=== PATIENT | female | born 1985 | race African-American/Black ===

== ENCOUNTER 2017-10-31 09:28 | Emergency (ER) | payer BC ==
[~2017-10-31 09:28] MED LIST: CEPH-507 PO; FLUC150T PO
--- OUTSIDE RECORDS SUMMARY | 2017-10-31 09:33 | XMS REPORT | Continuity of Care Document ---
Author Author [facility] Address Unknown Phone Unavailable Allergies Active Description Code Type Severity Reaction Onset Reported/Identified Relationship to Patient Clinical Status Yes No Known Medication Allergies Drug N/A N/A Yes No Known Medication Allergies Drug N/A N/A Medications Medication Packaging Start Date Stop Date Route Dosage Sig metroNIDAZOLE 09/16/2017 09/16/2017 PO 500 mg / 1 tab metroNIDAZOLE 09/19/2017 09/20/2018 PO 500 mg / 1 tab Problems Date Dx Coded Attending Type Code Diagnosis Diagnosed By 09/16/2017 Adarsh Vines Final Z12.4 Encounter for screening for malignant neoplasm of cervix Procedures There is no data. Results Test Result Range PAP - 09/16/17 06:17 PAP Smear Billing Fee Code(s): 1: 32123 NRG CERVICAL/VAG CULT - 09/16/17 16:53 Culture NEGATIVE FOR N. GONORRHOEAE, S. AUREUS, GROUP B STREP, YEAST NRG Gram Stain MODERATE EPITHELIAL CELLS SEEN NRG Organism CXFL NRG Report Status FINAL 09/19/2017 NRG Special Requests ROUT+ NRG Specimen Description VAGINAL/ENDOCERVICAL NRG Encounters ACCT No. Visit Date/Time Discharge Status Pt. 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
[2017-10-31] MEDS ORDERED: METH4TAB PO (15:36)
== END 2017-10-31 10:14 | disposition left against medical advice (07) ==
LOC: EDUNIT# 09:28 → ER 09:30
DX: R07.9 Chest pain, unspecified (principal)

== ENCOUNTER 2017-10-31 11:38 | Emergency (ER) | payer BC ==
[~2017-10-31] VITALS: Ht 154.9 cm; Wt 70.3 kg
--- OUTSIDE RECORDS SUMMARY | 2017-10-31 11:42 | XMS REPORT | Continuity of Care Document ---
Author Author [facility] Address Unknown Phone Unavailable Allergies Active Description [...] 06:17 PAP Smear Billing Fee Code(s): 1: 40781 NRG CERVICAL/VAG CULT - 09/16/17 16:53 Culture NEGATIVE FOR N. GONORRHOEAE, S. AUREUS, GROUP B STREP, YEAST NRG Gram Stain MODERATE EPITHELIAL CELLS SEEN NRG Organism CXFL NRG Report Status FINAL 09/19/2017 NRG Special Requests ROUT+ NRG Specimen Description VAGINAL/ENDOCERVICAL NRG Encounters ACCT No. Visit Date/Time Discharge Status Pt. 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
[2017-10-31] MEDS ORDERED: ASPIRIN 81 MG CHEW (CHILDREN'S ASA) PO ONE (12:15)
--- NOTE | 2017-10-31 12:28 | Diagnostic Imaging Report ---
INDICATION: Chest pain. COMPARISON: None. FINDINGS: Upright portable view of the chest is obtained. Heart size is normal. The pulmonary vessels appear unremarkable. There is no pneumothorax, mediastinal widening or pleural fluid. Lungs are clear. IMPRESSION: Negative chest. Dictated by: Dictated on workstation # [id number]
[2017-10-31 13:44] LABS: BILIRUBIN,URINE NEGATIVE (NEGATIVE); CLARITY,URINE SLIGHTLY CLOUDY; COLOR,URINE YELLOW; GLUCOSE, URINE (UA) NEGATIVE (NEGATIVE); KETONES,URINE NEGATIVE (NEGATIVE); LEUKOCYTE ESTERASE ,URINE NEGATIVE (NEGATIVE); NITRITE,URINE NEGATIVE (NEGATIVE); PH,URINE 7 (5-9); PROTEIN,URINE NEGATIVE (NEGATIVE); UROBILINOGEN,URINE NORMAL (NORMAL)
[2017-10-31 13:55] LABS: BACTERIA,URINE NEGATIVE /HPF; WBC,URINE RARE /HPF
[2017-10-31 13:58] LABS: AMPHETAMINE SCREEN, URINE NEGATIVE (NEGATIVE); BARBITURATE SCREEN URINE NEGATIVE (NEGATIVE); BENZODIAZEPINES SCREEN URINE NEGATIVE (NEGATIVE); CANNABINOID SCREEN, URINE NEGATIVE (NEGATIVE); COCAINE SCREEN URINE NEGATIVE (NEGATIVE); METHADONE STAT NEGATIVE (NEGATIVE); METHAMPHETAMINE SCREEN URINE S NEGATIVE (NEGATIVE); OPIATE SCREEN URINE NEGATIVE (NEGATIVE); OXYCODONE STAT NEGATIVE (NEGATIVE); PROPOXYPHENE STAT NEGATIVE (NEGATIVE); TRICYCLIC ANTIDEPRESSANTS SCRE NEGATIVE (NEGATIVE)
[2017-10-31 14:09] LABS: BASOPHILS % (AUTO) 1 % (0-10); EOSINOPHILS % (AUTO) 1 % (0-10); HEMATOCRIT 34 % (35-52); HEMOGLOBIN 10.5 G/DL (11.5-16.0); LYMPHOCYTES # (AUTO) 1.8 X 10^3 (1.0-4.0); LYMPHOCYTES % (AUTO) 54 % (12-44); MEAN CORPUSCULAR HEMOGLOBIN 24 PG (25-34); MEAN CORPUSCULAR HGB CONC 31 G/DL (32-36); MEAN CORPUSCULAR VOLUME 77 FL (80-99); MEAN PLATELET VOLUME 10.3 FL (7.4-10.4); MONOCYTES # (AUTO) 0.2 X 10^3 (0.0-1.0); MONOCYTES % (AUTO) 7 % (0-12); NEUTROPHILS # (AUTO) 1.2 X 10^3 (1.8-7.8); NEUTROPHILS % (AUTO) 37 % (42-75); PLATELET COUNT 286 10^3/uL (130-400); RED BLOOD COUNT 4.34 10^6/uL (4.35-5.85); RED CELL DISTRIBUTION WIDTH 22.7 % (10.0-14.5); WHITE BLOOD COUNT 3.3 10^3/uL (4.3-11.0)
[2017-10-31 14:18] LABS: PROTHROMBIN TIME PATIENT 13.4 SEC (12.2-14.7)
[2017-10-31 14:29] LABS: ALANINE AMINOTRANSFERASE 13 U/L (0-55); ALBUMIN 4.1 GM/DL (3.2-4.5); ALKALINE PHOSPHATASE 51 U/L (40-136); AMYLASE 87 U/L (25-125); BILIRUBIN,TOTAL 0.5 MG/DL (0.1-1.0); BUN/CREATININE RATIO 6; CALCIUM 10.3 MG/DL (8.5-10.1); CARBON DIOXIDE 22 MMOL/L (21-32); CHLORIDE 106 MMOL/L (98-107); CREATINE KINASE 47 U/L (29-168); CREATININE SERUM 0.83 MG/DL (0.60-1.30); GFR ESTIMATED > 60; GLUCOSE 85 MG/DL (70-105); LIPASE 15 U/L (8-78); MAGNESIUM 1.9 MG/DL (1.8-2.4); POTASSIUM 3.9 MMOL/L (3.6-5.0); SODIUM 137 MMOL/L (135-145); TOTAL PROTEIN 7.4 GM/DL (6.4-8.2)
[2017-10-31 14:37] LABS: CREATINE KINASE MB 0.2 NG/ML (<6.6)
[2017-10-31] MEDS ORDERED: ASPIRIN 81 MG CHEW (CHILDREN'S ASA) ONE (14:49)
[2017-10-31] MEDS ORDERED: KETOROLAC 30 MG/ML VIAL IVP ONE (15:15)
[2017-10-31] MEDS ORDERED: METH4TAB PO (15:36)
--- NOTE | 2017-10-31 15:36 | ED Chest Pain ---
General Chief Complaint: Chest Pain Stated Complaint: CP Nursing Triage Note: C/O INTERMITTANT CHEST PAIN SINCE . Nursing Sepsis Screen: No Definite Risk Allergies and Home Medications Allergies Coded Allergies: No Known Drug Allergies (Unverified , 08/21/17) Home Medications Cephalexin 500 Mg Capsule, 500 MG PO QID, #28 Prescribed by: DORA COBOS on 08/21/17 2319 Fluconazole 150 Mg Tablet, 150 MG PO UD, #2 Take one now and one in 3 or 4 days Prescribed by: DORA COBOS on 08/21/17 2320 Past Pbylrtk-Rfjlon-Gxywws Hx Patient Social History Alcohol Use: Denies Use Recreational Drug Use: No Smoking Status: Never a Smoker 2nd Hand Smoke Exposure: No Recent Foreign Travel: No Contact w/Someone Who Travel: No Recent Infectious Disease Expo: No Recent Hopitalizations: No Seasonal Allergies Seasonal Allergies: No Surgeries History of Surgeries: No Respiratory History of Respiratory Disorde: No Cardiovascular History of Cardiac Disorders: No Neurological History of Neurological Disord: No Genitourinary History of Genitourinary Disor: No Gastrointestinal History of Gastrointestinal Di: No Musculoskeletal History of Musculoskeletal Dis: No Endocrine History of Endocrine Disorders: No HEENT History of HEENT Disorders: No Cancer History of Cancer: No Psychosocial History of Psychiatric Problem: No Integumentary History of Skin or Integumenta: No Physical Exam Vital Signs Vital Sign - Last 12Hours 10/31/17 12:06 Temp 98.2 Pulse 55 Resp 16 B/P (MAP) 119/70 (86) Pulse Ox 98 O2 Delivery Room Air Capillary Refill : Less Than 3 Seconds Progress/Results/Core Measures Results/Orders Lab Results Laboratory Tests Test 10/31/17 13:30 10/31/17 13:45 Range/Units Urine Color YELLOW Urine Clarity SLIGHTLY CLOUDY Urine pH 7 5-9 Urine Specific [place] 1.005 L 1.016-1.022 Urine Protein NEGATIVE NEGATIVE Urine Glucose (UA) NEGATIVE NEGATIVE Urine Ketones NEGATIVE NEGATIVE Urine Nitrite NEGATIVE NEGATIVE Urine Bilirubin NEGATIVE NEGATIVE Urine Urobilinogen NORMAL NORMAL MG/DL Urine Leukocyte Esterase NEGATIVE NEGATIVE Urine RBC (Auto) NEGATIVE NEGATIVE Urine RBC NONE /HPF Urine WBC RARE /HPF Urine Squamous Epithelial Cells 2-5 /HPF Urine Crystals NONE /LPF Urine Bacteria NEGATIVE /HPF Urine Casts NONE /LPF Urine Mucus NEGATIVE /LPF Urine Culture Indicated NO Urine Opiates Screen NEGATIVE NEGATIVE Urine Oxycodone Screen NEGATIVE NEGATIVE Urine Methadone Screen NEGATIVE NEGATIVE Urine Propoxyphene Screen NEGATIVE NEGATIVE Urine Barbiturates Screen NEGATIVE NEGATIVE Ur Tricyclic Antidepressants Screen NEGATIVE NEGATIVE Urine Phencyclidine Screen NEGATIVE NEGATIVE Urine Amphetamines Screen NEGATIVE NEGATIVE Urine Methamphetamines Screen NEGATIVE NEGATIVE Urine Benzodiazepines Screen NEGATIVE NEGATIVE Urine Cocaine Screen NEGATIVE NEGATIVE Urine Cannabinoids Screen NEGATIVE NEGATIVE White Blood Count 3.3 L 4.3-11.0 10^3/uL Red Blood Count 4.34 L 4.35-5.85 10^6/uL Hemoglobin 10.5 L 11.5-16.0 G/DL Hematocrit 34 L 35-52 % Mean Corpuscular Volume 77 L 80-99 FL Mean Corpuscular Hemoglobin 24 L 25-34 PG Mean Corpuscular Hemoglobin Concent 31 L 32-36 G/DL Red Cell Distribution Width 22.7 H 10.0-14.5 % Platelet Count 286 130-400 10^3/uL Mean Platelet Volume 10.3 7.4-10.4 FL Neutrophils (%) (Auto) 37 L 42-75 % Lymphocytes (%) (Auto) 54 H 12-44 % Monocytes (%) (Auto) 7 0-12 % Eosinophils (%) (Auto) 1 0-10 % Basophils (%) (Auto) 1 0-10 % Neutrophils # (Auto) 1.2 L 1.8-7.8 X 10^3 Lymphocytes # (Auto) 1.8 1.0-4.0 X 10^3 Monocytes # (Auto) 0.2 0.0-1.0 X 10^3 Eosinophils # (Auto) 0.0 0.0-0.3 10^3/uL Basophils # (Auto) 0.0 0.0-0.1 10^3/uL Prothrombin Time 13.4 12.2-14.7 SEC INR Comment 1.0 0.8-1.4 Activated Partial Thromboplast Time 33 24-35 SEC Sodium Level 137 135-145 MMOL/L Potassium Level 3.9 3.6-5.0 MMOL/L Chloride Level 106 98-107 MMOL/L Carbon Dioxide Level 22 21-32 MMOL/L Anion Gap 9 5-14 MMOL/L Blood Urea Nitrogen 5 L 7-18 MG/DL Creatinine 0.83 0.60-1.30 MG/DL Estimat Glomerular Filtration Rate > 60 BUN/Creatinine Ratio 6 Glucose Level 85 70-105 MG/DL Calcium Level 10.3 H 8.5-10.1 MG/DL Magnesium Level 1.9 1.8-2.4 MG/DL Total Bilirubin 0.5 0.1-1.0 MG/DL Aspartate Amino Transf (AST/SGOT) 15 5-34 U/L Alanine Aminotransferase (ALT/SGPT) 13 0-55 U/L Alkaline Phosphatase 51 40-136 U/L Total Creatine Kinase 47 29-168 U/L Creatine Kinase MB 0.2 <6.6 NG/ML Troponin I < 0.30 <0.30 NG/ML B-Type Natriuretic Peptide 18.7 <100.0 PG/ML Total Protein 7.4 6.4-8.2 GM/DL Albumin 4.1 3.2-4.5 GM/DL Amylase Level 87 25-125 U/L Lipase 15 8-78 U/L Serum Test, Qualitative NEGATIVE NEGATIVE Monoscreen NEGATIVE NEGATIVE Micro Results Microbiology 10/31/17 Influenza Types A,B Antigen (DAVID) - Final, Complete My Orders Orders - MARGOT PACHECO DO Continuous Ekg Monitoring (10/31/17 11:58) Ekg Tracing (10/31/17 11:58) Amylase (10/31/17 12:07) Cbc With Automated Diff (10/31/17 12:07) Comprehensive Metabolic Panel (10/31/17 12:07) Creatine Kinase (10/31/17 12:07) Creatine Kinase Mb (10/31/17 12:07) Lipase (10/31/17 12:07) Partial Thromboplastin Time (10/31/17 12:07) Protime With Inr (10/31/17 12:07) Troponin I (10/31/17 12:07) Chest 1 View, Ap/Pa Only (10/31/17 12:07) O2 (10/31/17 12:07) Aspirin Chewable Tablet (Baby Aspirin Ch (10/31/17 12:15) BNP (10/31/17 12:07) Monitor-Rhythm Ecg Trace Only (10/31/17 12:07) Drug Screen Stat (Urine) (10/31/17 12:07) Hcg,Qualitative Serum (10/31/17 12:07) Magnesium (10/31/17 12:07) Ua Culture If Indicated (10/31/17 12:07) Monotest (10/31/17 14:34) Influenza A And B Antigens (10/31/17 14:34) Aspirin Chewable Tablet (Baby Aspirin Ch (10/31/17 14:49) Ketorolac Injection (Toradol Injection) (10/31/17 15:15) Vital Signs/I&O Vital Sign - Last 12Hours 10/31/17 12:06 Temp 98.2 Pulse 55 Resp 16 B/P (MAP) 119/70 (86) Pulse Ox 98 O2 Delivery Room Air Blood Pressure Mean: 86 Departure Impression Impression: Primary Impression: Chest wall pain Additional Impression: Viral syndrome Disposition: HOME, SELF-CARE Condition: Stable Departure-Patient Inst. Referrals: NO,LOCAL PHYSICIAN (PCP/Family) Primary Care Physician Patient Instructions: Costochondritis (DC), Pleuritic Chest Pain (DC), Chest Pain (DC), Chest Pain That Is Not Caused by the Heart (DC) Add. Discharge Instructions: LOTS OF CLEAR LIQUIDS TYLENOL NEEDED FOR PAIN FOLLOW UP WITH OF CHOICE IN 2-3 DAYS IF NO BETTER All discharge instructions reviewed with patient and/or family. Voiced understanding. Scripts Methylprednisolone (Medrol) 4 Mg Tab.ds.pk 4 MG PO UD, #1 PKG Prov: MARGOT PACHECO DO 10/31/17 MARGOT PACHECO DO Oct 31, 2017 15:36
[2017-10-31 16:02] VITALS: BP 122/72
== END 2017-10-31 16:02 | disposition home or self-care (01) ==
LOC: EDUNIT# 11:38 → ER 11:39
DX: R07.89 Other chest pain (principal); B34.9 Viral infection, unspecified
CPT/HCPCS: 36415; 71045; 80053; 80306; 81000; 82150; 82550; 82553; 83690; 83735; 83880; 84484; 84703; 85025; 85610; 85730; 86308; 87804; 93005; 93041; 96374